=== PATIENT | female | born 1985 | race African-American/Black ===

== ENCOUNTER → 2020-09-07 12:53 | Outpatient (CLI) | payer BC, SELFPAY ==
--- NOTE | 2020-09-07 13:04 | MR_ITS ---
PROCEDURE: MR ORBITS FACE NECK WO/W CON CLINICAL INDICATION: OPTIC NERVE EDEMA COMPARISON: No exams were available for comparison TECHNIQUE: Routine multiplanar multi echo sequences are performed without gadolinium enhancement. FINDINGS: Some images are degraded due to motion artifact. Multiple images of the orbits demonstrate there is perineural edema with the prominence of the left optic nerve sheath. This is better evaluated on the coronal STIR images. The globes, intra and extraconal structures are otherwise unremarkable. No evidence of abnormal enhancement is noted. The optic chiasma is midline. The sellar and the suprasellar structures demonstrate a focal enhancing lesion in the right anterior cranial fossa in the right frontal lobe, most likely represents a meningioma. The sella and the suprasellar region is otherwise unremarkable. Few foci of enhancing focal lesions without adjacent edema is noted in the visualized brain, better evaluated on the MRI of the brain of the same date. IMPRESSION: Prominence of the left optic nerve sheath with perineural edema, raises the concern for optic neuritis. Focal dural based enhancing masslike lesion measuring 1.9 x 1.9 centimeters noted, most likely represents meningioma. Dictated by: Shanta Chung 09/07/2020 16:08 Shanta Chung in [place] 09/07/2020 16:08
--- NOTE | 2020-09-07 13:04 | MR_ITS ---
PROCEDURE: MR HEAD/BRAIN WO/W CON CLINICAL INDICATION: OPTIC NERVE EDEMA COMPARISON: No exams were available for comparison TECHNIQUE: Routine multiplanar multi echo sequences are performed without gadolinium enhancement. FINDINGS: No evidence of restricted diffusion is noted. There is extensive pericallosal, periventricular and subcortical white matter T2 and FLAIR hyperintensities noted bilaterally. Few foci of T2 and FLAIR hyperintensities noted in the right middle cerebellar peduncle, nelsy and midbrain. Some of these lesions demonstrate post-contrast enhancement, suggesting active blocks. In the anterior cranial fossa there is a focal enhancing isointense lesion measuring 2 times 1.9 centimeters, demonstrates minor adjacent meningeal enhancement, raises the suggestion of meningioma. There is minor associated edema noted in the right frontal lobe in the anterior cranial fossa. No midline shift or mass effect. No evidence of restricted diffusion. The edmondson-white matter differentiation is otherwise unremarkable. No evidence of acute infarct, intra or extra-axial hemorrhage. The flow voids in the major intracranial vessels are preserved. Brain parenchymal volume is appropriate for the age of the patient. The visualized osseous structures are unremarkable. Paranasal sinuses and mastoid air cells are clear. IMPRESSION: Multiple perivesical low cell, periventricular and subcortical T2 and FLAIR hyperintensities, raises the concern for demyelinating and dysmyelinating disorders including multiple sclerosis. Some of these lesions demonstrate enhancement. Active plaques are suspected. Focal enhancing dural-based lesion in the right frontal lobe in the anterior cranial fossa. Meningioma is suspected. Other dural-based pathologies including metastasis cannot be completely excluded. Dictated by: Shanta Chung 09/07/2020 16:02 Shanta Chung in [facility] 09/07/2020 16:02
== END ==
PROVIDERS: PCP Internal Medicine; Visit Provider Family Medicine Addiction Medicine
DX: H05.53 Retained (old) foreign body following penetrating wound of bilateral orbits (principal); H47.10 Unspecified papilledema
CPT/HCPCS: 70543; 70553; A9576